=== PATIENT | female | born 1985 | race African-American/Black ===

== ENCOUNTER → 2021-10-28 | Emergency (ER) | payer OTHER ==
[2021-10-28 13:31] VITALS: BP 107/70; PULSE 109; RESP 18; TEMP 98.8; BMI 30.9
== END ==
LOC: JER 12:56
DX: R53.1 Weakness (principal); R51.9 Headache, unspecified
CPT/HCPCS: 93005; 93010; 99281-25

== ENCOUNTER 2022-03-05 10:15 | Inpatient (IN) | payer OTHER ==
[2022-03-05] MEDS ORDERED: ELECTROLYTE-148 SOLN 1,000 ML IV SCH (10:45)
[2022-03-05] MEDS ORDERED: AMPICILLIN SODIUM 2 GM VIAL ONE (10:54)
[2022-03-05 11:16] LABS: BASO % 0.8 % (0-2.0); EOS % 0.3 % (0-4.5); HEMATOCRIT 31.3 % (32.4-45.2); LYMPH % 22.6 % (8-40); MCHC 31.9 g/dl (32.0-36.0); MEAN CELL VOLUME 78.5 fl (80-96); MEAN PLT VOLUME 7.8 fl (7.5-11.1); MONO % 8.1 % (3.8-10.2); NEUT % 68.2 % (42.8-82.8); PLATELET COUNT 301 10^3/uL (134-434); RBC 3.98 M/mm3 (3.60-5.2); WHITE BLOOD COUNT 5.4 K/mm3 (4.0-10.0)
[2022-03-05 11:17] VITALS: BMI 31.4
[2022-03-05 11:28] LABS: CALCIUM 8.9 mg/dL (8.5-10.1)
[2022-03-05 11:29] LABS: BLOOD UREA NITROGEN 6.6 mg/dL (7-18)
[2022-03-05 11:30] LABS: INR 0.99 (0.83-1.09); PROTHROMBIN TIME (PATIENT) 11.4 SEC (9.7-13.0)
[2022-03-05 11:31] LABS: CREATININE 0.5 mg/dL (0.55-1.3)
[2022-03-05 11:33] LABS: ACTIVATED PTT 25.3 SECONDS (25.2-36.5)
[2022-03-05] MEDS ORDERED: FENTANYL/BUPIVACAINE/NS/PF - PCEA - 50 ML DISP.SYRIN EP ONE ×2 (11:50→15:40)
[2022-03-05] MEDS ORDERED: FENTANYL CITRATE/PF 50 MCG/ML VIAL ONE (11:52)
[2022-03-05] MEDS ORDERED: FENTANYL/BUPIVACAINE/NS/PF - PCEA - 50 ML DISP.SYRIN EP SCH ×2 (12:00→13:57)
[2022-03-05] MEDS ORDERED: OXYTOCIN 30 UNITS in 0.9% NS 30 UNIT/500 ML INFUS.BAG IVPB SCH (13:30)
[2022-03-05] MEDS ORDERED: NALOXONE HCL 0.4 MG/ML VIAL IVPUSH PRN (13:53)
[2022-03-05] MEDS ORDERED: OXYTOCIN 30 UNITS in 0.9% NS 30 UNIT/500 ML INFUS.BAG IVPB ONE (13:56)
[2022-03-05] MEDS ORDERED: OXYTOCIN 20 UNITS in 0.9% NS 20 UNIT/1,000 ML INFUS.BAG IV ONE (15:29)
[2022-03-05] MEDS ORDERED: WITCH HAZEL 50% (TUCKS) 40 PAD/JAR PAD TP PRN (16:27)
[2022-03-05] MEDS ORDERED: BENZOCAINE 28 GM HEMORRHOIDAL OINTMENT TP PRN (16:27)
[2022-03-05] MEDS ORDERED: BISACODYL 10 MG SUPP.RECT RC PRN (16:27)
[2022-03-05] MEDS ORDERED: BENZOCAINE 20% 57 GM BOTTLE TP PRN (16:27)
[2022-03-05] MEDS ORDERED: ACETAMINOPHEN 325 MG TABLET (FP) PO PRN (16:27)
[2022-03-05] MEDS ORDERED: METHYLERGONOVINE MALEATE 0.2 MG/1 ML AMP IM PRN (16:27)
[2022-03-05] MEDS ORDERED: OXYTOCIN 20 UNITS in 0.9% NS 20 UNIT/1,000 ML INFUS.BAG IV SCH (16:30)
[2022-03-05] MEDS: IBUPROFEN 600 MG TABLET (FP) PO PRN (20:00)
[2022-03-06 07:11] LABS: BASO % 0.2 % (0-2.0); EOS % 0.3 % (0-4.5); HEMATOCRIT 29.6 % (32.4-45.2); HEMOGLOBIN 9.4 GM/dL (10.7-15.3); MCH 25.1 pg (25.7-33.7); MCHC 31.8 g/dl (32.0-36.0); MEAN CELL VOLUME 78.9 fl (80-96); MEAN PLT VOLUME 7.8 fl (7.5-11.1); MONO % 6.1 % (3.8-10.2); NEUT % 83.4 % (42.8-82.8); PLATELET COUNT 252 10^3/uL (134-434); RBC 3.76 M/mm3 (3.60-5.2); WHITE BLOOD COUNT 11.4 K/mm3 (4.0-10.0)
[2022-03-06] MEDS: IBUPROFEN 600 MG TABLET (FP) PO PRN (09:23)
[2022-03-06] MEDS ORDERED: FLU VACC QS2022-23(6MOS UP)/PF 60 MCG/0.5 ML SYRINGE IM ONE (10:00)
[2022-03-06] MEDS ORDERED: DIPHTH,PERTUSS(ACELL),TET 0.5 ML DISP.SYRIN IM ONE (10:00)
[2022-03-06] MEDS: FERROUS SO4 325 MG TABLET (FP) PO SCH (17:26)
[2022-03-06] MEDS ORDERED: SENNOSIDES/DOCUSATE COMBO (SENNA PLUS) TABLET (UD) PO PRN (22:00)
[2022-03-07 09:22] VITALS: BP 111/72; PULSE 73; RESP 18; TEMP 98.2
[2022-03-07] MEDS: FERROUS SO4 325 MG TABLET (FP) PO SCH (10:51)
== END 2022-03-07 13:00 | disposition home or self-care (01) | DRG 560 ==
LOC: JLDR 10:15 → J3W 17:57
PROVIDERS: ADMIT Obstetrics & Gynecology; ATTEND Obstetrics & Gynecology
PROC: 10E0XZZ Delivery of Products of Conception, External Approach (ICD-10-PCS; principal; 2022-03-05)
DX: O42.02 Full-term premature rupture of membranes, onset of labor within 24 hours of rupture (principal); Z3A.39 39 weeks gestation of pregnancy; Z37.0 Single live birth
CPT/HCPCS: 36415; 59409; 80048; 85025; 85610; 85730; 86780; 86850; 86900; 86901; 90715; C9803-CS; G0008; Q2036; U0003; U0005